=== PATIENT | male | born 1970 | race Caucasian/White ===

== ENCOUNTER 2019-09-12 14:03 | Observation (INO) ==
[2019-09-12] MEDS ORDERED: SODIUM CHLORIDE 0.9% 1000ML 1,000 ML IV SCH (14:30)
[2019-09-12] MEDS ORDERED: CLINDAMYCIN 900 MG in DEXTROSE 5% 50 ML IV ONE (15:02)
[2019-09-12] MEDS ORDERED: VANCOMYCIN HCL 1,750 MG in SODIUM CHLORIDE 0.9% 500 ML IV ONE (15:02)
[2019-09-12] MEDS ORDERED: PIPERACILL/TAZOBAC CONSULT ACTIVE PRN ×3 (15:02→19:47)
[2019-09-12] MEDS ORDERED: PIPERACILLIN/TAZOBACTAM 4.5 GM/120 ML BAG IV ONE (15:02)
[2019-09-12] MEDS ORDERED: VANCOMYCIN CONSULT ACTIVE PRN (15:02)
[2019-09-12 15:12] LABS: Appearance Urine Cloudy (Clear); Bacteria Urine Automated Negative (Negative); Blood Urine Negative (Negative); Color Urine Dark Yellow; Epithelial Cell Urine Auto 20-30 /lpf (0-5); Glucose Urine UA Negative (Negative); Ketones Urine Trace (Negative); Leukocyte Esterase Urine Trace (Negative); Nitrite Urine Negative (Negative); Protein Urine 1+ (Negative); Specific Gravity Urine 1.041 (1.000-1.030); Urobilinogen Urine Negative (Negative)
[2019-09-12 15:14] LABS: Basophils # (auto) 0.01 K/uL (0-0.2); Basophils % (auto) 0.1 %; Eosinophils # (auto) 0.05 K/uL (0-0.5); Eosinophils % (auto) 0.4 %; Hematocrit (blood only) 48.8 % (42-52); Hemoglobin 16.9 g/dL (14.0-18.0); Immature Granulocytes # (auto) 0.04 K/uL (0.00-0.02); Immature Granulocytes % (auto) 0.3 %; Lymphocytes # (auto) 0.88 K/uL (1.2-3.4); Lymphocytes % (auto) 7.5 %; Mean Corpuscular Hemoglobin 31.9 pg (25-34); Mean Corpuscular Hgb Conc 34.6 g/dL (32-36); Mean Corpuscular Volume 92.1 fL (80-100); Mean Platelet Volume 11.9 fL (7.4-10.4); Monocytes % (auto) 7.7 %; Neutrophils # (auto) 9.86 K/uL (1.4-6.5); Platelet Count 216 K/uL (130-400); RDW Coefficient of Variation 11.9 % (11.5-14.5); RDW Standard Deviation 40.6 fL (36.4-46.3); White Blood Count 11.74 K/uL (4.8-10.8)
[2019-09-12 15:16] LABS: Bilirubin Urine Negative (Negative); Ictotest Urine Negative (Negative)
--- NOTE | 2019-09-12 15:18 | Emergency Department Note ---
History of Present Illness General Chief complaint: Groin Pain Stated complaint: LUMP IN GROIN Time Seen by Provider: 09/12/19 14:09 History of Present Illness Maximum Pain Intensity: 7 This is a 49-year-old male that presents to the emergency department via private vehicle with complaints "lump in groin". The patient states this past Tuesday he was fishing, when he notes that he developed some discomfort in the rectal region. He thought perhaps it was a bruise from sitting while fishing but then notes that Tuesday evening into Tuesday the area increased in size and the pain also increased. He did take 3 days of penicillin that he had at home without relief. The area continues to grow. He denies any fevers or chills. He rates the pain is a 7/10. He has never had this before. He did have a recent shoulder surgery performed in June. Home Medications Home Medications Medication Instructions Recorded Confirmed Type famotidine 20 mg PO DAILY 11/21/18 09/12/19 History meloxicam 7.5 mg PO DAILY PRN 11/21/18 09/12/19 History rosuvastatin 20 mg PO DAILY 11/21/18 09/12/19 History Allergies Allergy/AdvReac Type Severity Reaction Status Date / Time Bactrim Allergy Severe ANAPHYLAXIS Verified 04/04/13 08:43 sulfamethoxazole Allergy Severe ANAPHYLAXIS Verified 09/12/19 14:26 trimethoprim Allergy Severe ANAPHYLAXIS Verified 09/12/19 14:26 adhesive Allergy Rash Unverified 09/12/19 14:26 Past Med/Surg History Medical History No pertinent past medical history Surgical History History of shoulder surgery Social History Preferred Language: Urdu Feels Safe at Home: Yes Smoking Status: Never smoker Review of Systems A total of 10 systems reviewed and were otherwise negative Physical Exam Vital Signs Vital Signs - 24 hr 09/12/19 14:04 09/12/19 15:00 09/12/19 15:02 Temperature 36.8 C Temperature Source Oral Pulse Rate 115 H 100 H Pulse Rate [Apical] Pulse Rate [Left] 100 H Pulse Rate from SpO2 Sensor 100 H Pulse Rhythm [Apical] Pulse Rhythm [Left] Regular Respiratory Rate 18 24 20 Respiratory Effort / Characteristics Non-Labored Spontaneous Non-Labored Respiratory Depth Normal Normal Respiratory Pattern Regular Blood Pressure 160/109 H 149/90 H Blood Pressure [Left Arm] 149/90 H Blood Pressure Mean 126 111 Blood Pressure Mean [Left Arm] 109 Blood Pressure Position Sitting Blood Pressure Position [Left Arm] Pulse Oximetry 98 99 96 Oxygen Delivery Method Room Air Room Air Oxygen Flow Rate Sepsis Recent Fever Within 48 Hours No Sepsis Action Taken by Nursing No Action Required 09/12/19 15:30 09/12/19 16:04 09/12/19 16:30 Temperature Temperature Source Pulse Rate 102 H 96 H 95 H Pulse Rate [Apical] Pulse Rate [Left] Pulse Rate from SpO2 Sensor 103 H 95 H 95 H Pulse Rhythm [Apical] Pulse Rhythm [Left] Respiratory Rate 21 25 H 24 Respiratory Effort / Characteristics Respiratory Depth Respiratory Pattern Blood Pressure 141/94 H Blood Pressure [Left Arm] Blood Pressure Mean 103 Blood Pressure Mean [Left Arm] Blood Pressure Position Blood Pressure Position [Left Arm] Pulse Oximetry 97 98 97 Oxygen Delivery Method Room Air Oxygen Flow Rate Sepsis Recent Fever Within 48 Hours Sepsis Action Taken by Nursing 09/12/19 17:06 09/12/19 18:44 09/12/19 18:50 Temperature 37.1 C Temperature Source Temporal Artery Scan Pulse Rate 100 H Pulse Rate [Apical] 90 93 H Pulse Rate [Left] Pulse Rate from SpO2 Sensor Pulse Rhythm [Apical] Regular Regular Pulse Rhythm [Left] Respiratory Rate 20 12 13 Respiratory Effort / Characteristics Non-Labored Spontaneous Non-Labored Spontaneous Respiratory Depth Normal Normal Respiratory Pattern Regular Regular Blood Pressure 162/97 H Blood Pressure [Left Arm] 146/94 H 111/91 Blood Pressure Mean Blood Pressure Mean [Left Arm] 111 97 Blood Pressure Position Blood Pressure Position [Left Arm] Lying Lying Pulse Oximetry 97 98 98 Oxygen Delivery Method Room Air Nasal Cannula Nasal Cannula Oxygen Flow Rate 4 4 Sepsis Recent Fever Within 48 Hours Sepsis Action Taken by Nursing 09/12/19 19:00 09/12/19 19:10 Temperature Temperature Source Pulse Rate Pulse Rate [Apical] 94 H 91 H Pulse Rate [Left] Pulse Rate from SpO2 Sensor Pulse Rhythm [Apical] Regular Regular Pulse Rhythm [Left] Respiratory Rate 16 15 Respiratory Effort / Characteristics Non-Labored Spontaneous Non-Labored Spontaneous Respiratory Depth Normal Normal Respiratory Pattern Regular Regular Blood Pressure Blood Pressure [Left Arm] 115/91 129/91 Blood Pressure Mean Blood Pressure Mean [Left Arm] 99 103 Blood Pressure Position Blood Pressure Position [Left Arm] Lying Lying Pulse Oximetry 98 98 Oxygen Delivery Method Nasal Cannula Nasal Cannula Oxygen Flow Rate 4 4 Sepsis Recent Fever Within 48 Hours Sepsis Action Taken by Nursing VITAL SIGNS - Vital signs and nursing notes were reviewed. Patient is mildly tachycardic on arrival, otherwise stable GENERAL -49-year-old male appearing his stated age who is in no acute distress. Communicates well with provider and answers questions appropriately. SKIN -please see the /rectal portion of the exam. There is an edematous, and erythematous region overlying the patient's right perirectal region. HEAD - NC/AT. EYES - Sclera anicteric. MOUTH/OROPHARYNX - Without perioral cyanosis. NECK - Neck with FROM. No nuchal rigidity. LUNGS - Chest wall symmetric without accessory muscle use, intercostals retractions, or central cyanosis. Normal vesicular breath sounds CTA B/L. No wheezes, rales, or rhonchi appreciated. CARDIAC - RRR with S1/S2. No murmur, rubs, or gallops appreciated. ABDOMEN - Abdominal contour normal without pulsations or visible masses. BS normoactive all four quadrants. No tenderness, palpable masses, hepatosplenomegaly, or ascites noted. /rectal: There is edema as well as erythema overlying the patient's right pararectal region that tracks to the perineal region. There is no scrotal tenderness. No scrotal edema. No scrotal erythema. Course Administered Medications Fentanyl Citrate (Fentanyl Citrate) 50 mcg IV Q5M PRN PRN Reason: PACU Use Only-Pain Stop: 09/13/19 03:02 Last Admin: 09/12/19 19:03 Dose: 50 mcg Documented by: [id number] Ioversol (Optiray 320 100ml) 94 ml IV ONCE PRN PRN Reason: Interaction Checking Stop: 09/16/19 15:51 Last Admin: 09/12/19 15:52 Dose: 94 ml Documented by: [id number] Discontinued Medications Bacitracin (Bacitracin) Confirm Administered Dose 45 appln .ROUTE .STK-MED ONE Stop: 09/12/19 18:03 Last Admin: 09/12/19 18:11 Dose: Not Given Documented by: [id number] Bupivacaine HCl (Marcaine 0.5% Mpf) Confirm Administered Dose 30 ml .ROUTE .STK- MED ONE Stop: 09/12/19 18:03 Last Admin: 09/12/19 18:11 Dose: 6 ml Documented by: [id number] Fentanyl Citrate (Fentanyl Citrate) Confirm Administered Dose 100 mcg .ROUTE .STK-MED ONE Stop: 09/12/19 18:59 Last Increment: 09/12/19 18:58 Dose: 50 mcg Documented by: [id number] Sodium Chloride (Nss 1000ml) 1,000 mls @ 999 mls/hr IV .Q1H1M BARBARA Stop: 09/12/19 15:30 Last Admin: 09/12/19 14:57 Dose: 999 mls/hr Documented by: [id number] Clindamycin Phosphate 900 mg/ (Dextrose) 56 mls @ 112 mls/hr IV ONE ONE Stop: 09/12/19 15:31 Last Admin: 09/12/19 16:22 Dose: 112 mls/hr Documented by: [id number] Vancomycin HCl 1,750 mg/ (Sodium Chloride) 535 mls @ 200 mls/hr IV NOW ONE Stop: 09/12/19 17:42 Last Admin: 09/12/19 15:41 Dose: 200 mls/hr Documented by: [id number] Piperacillin Sod/Tazobactam Sod (Zosyn) 4.5 gm in 120 mls @ 240 mls/hr IV NOW ONE Stop: 09/12/19 15:31 Last Infusion: 09/12/19 16:22 Dose: 0 mls/hr Documented by: [id number] Admin: 09/12/19 15:16 Dose: 240 mls/hr Documented by: [id number] Lidocaine HCl (Xylocaine 1% (Local)) Confirm Administered Dose 20 ml .ROUTE .STK-MED ONE Stop: 09/12/19 18:03 Last Admin: 09/12/19 18:12 Dose: 6 ml Documented by: [id number] Medical Decision Making Laboratory Data Result diagrams: 09/12/19 14:51 09/12/19 14:51 Lab Results 09/12/19 09/12/19 09/12/19 Range/Units 14:51 14:51 14:51 WBC 11.74 H (4.8-10.8) K/uL RBC 5.30 (4.7-6.1) M/uL Hgb 16.9 (14.0-18.0) g/dL Hct 48.8 (42-52) % MCV 92.1 (80-100) fL MCH 31.9 (25-34) pg MCHC 34.6 (32-36) g/dL RDW Std Deviation 40.6 (36.4-46.3) fL RDW Coeff of [place] 11.9 (11.5-14.5) % Plt Count 216 (130-400) K/uL MPV 11.9 H (7.4-10.4) fL Immature Gran % (Auto) 0.3 % Neut % (Auto) 84.0 % Lymph % (Auto) 7.5 % [place] % (Auto) 7.7 % Eos % (Auto) 0.4 % Baso % (Auto) 0.1 % Immature Gran # (Auto) 0.04 H (0.00-0.02) K/uL Neut # (Auto) 9.86 H (1.4-6.5) K/uL Lymph # (Auto) 0.88 L (1.2-3.4) K/uL [place] # (Auto) 0.90 H (0.11-0.59) K/uL Eos # (Auto) 0.05 (0-0.5) K/uL Baso # (Auto) 0.01 (0-0.2) K/uL Sodium 130 L (136-145) mmol/L Potassium 3.8 (3.5-5.1) mmol/L Chloride 103 (98-107) mmol/L Carbon Dioxide 27 (21-32) mmol/L Anion Gap 0 L (3-11) BUN 12 (7-18) mg/dl Creatinine 1.10 (0.6-1.4) mg/dl Est Cr Clr Drug Dosing 85.8 ml/min Est GFR ( Amer) 90.2 Est GFR (Non-Af Amer) 77.9 BUN/Creatinine Ratio 10.9 (10-20) Glucose 97 (70-99) mg/dl Lactate 1.4 (0.4-2.0) mmol/L Calcium 9.7 (8.5-10.1) mg/dl Total Bilirubin 0.7 (0.2-1) mg/dl AST 13 L (15-37) U/L ALT 31 (12-78) U/L Alkaline Phosphatase 107 (45-117) U/L C-Reactive Protein 13.20 H (0-0.29) mg/dl Total Protein 8.9 H (6.4-8.2) gm/dl Albumin 4.0 (3.4-5.0) gm/dl Globulin 4.9 H (2.5-4.0) gm/dl Albumin/Globulin Ratio 0.8 L (0.9-2) Urine Color Urine Appearance (Clear) Urine pH (4.5-7.5) Ur Specific [place] (1.000-1.030) Urine Protein (Negative) Urine Glucose (UA) (Negative) Urine Ketones (Negative) Urine Blood (Negative) Urine Nitrite (Negative) Urine Bilirubin (Negative) Urine Urobilinogen (Negative) Ur Leukocyte Esterase (Negative) Urine WBC (Auto) (0-5) /hpf Urine RBC (Auto) (0-4) /hpf U Hyaline Cast (Auto) (0-5) /lpf U Epithel Cells (Auto) (0-5) /lpf Urine Bacteria (Auto) (Negative) 09/12/19 Range/Units 14:59 WBC (4.8-10.8) K/uL RBC (4.7-6.1) M/uL Hgb (14.0-18.0) g/dL Hct (42-52) % MCV (80-100) fL MCH (25-34) pg MCHC (32-36) g/dL RDW Std Deviation (36.4-46.3) fL RDW Coeff of [place] (11.5-14.5) % Plt Count (130-400) K/uL MPV (7.4-10.4) fL Immature Gran % (Auto) % Neut % (Auto) % Lymph % (Auto) % [place] % (Auto) % Eos % (Auto) % Baso % (Auto) % Immature Gran # (Auto) (0.00-0.02) K/uL Neut # (Auto) (1.4-6.5) K/uL Lymph # (Auto) (1.2-3.4) K/uL [place] # (Auto) (0.11-0.59) K/uL Eos # (Auto) (0-0.5) K/uL Baso # (Auto) (0-0.2) K/uL Sodium (136-145) mmol/L Potassium (3.5-5.1) mmol/L Chloride (98-107) mmol/L Carbon Dioxide (21-32) mmol/L Anion Gap (3-11) BUN (7-18) mg/dl Creatinine (0.6-1.4) mg/dl Est Cr Clr Drug Dosing ml/min Est GFR ( Amer) Est GFR (Non-Af Amer) BUN/Creatinine Ratio (10-20) Glucose (70-99) mg/dl Lactate (0.4-2.0) mmol/L Calcium (8.5-10.1) mg/dl Total Bilirubin (0.2-1) mg/dl AST (15-37) U/L ALT (12-78) U/L Alkaline Phosphatase (45-117) U/L C-Reactive Protein (0-0.29) mg/dl Total Protein (6.4-8.2) gm/dl Albumin (3.4-5.0) gm/dl Globulin (2.5-4.0) gm/dl Albumin/Globulin Ratio (0.9-2) Urine Color Dark Yellow Urine Appearance Cloudy A (Clear) Urine pH 6.0 (4.5-7.5) Ur Specific [place] 1.041 H (1.000-1.030) Urine Protein 1+ H (Negative) Urine Glucose (UA) Negative (Negative) Urine Ketones Trace H (Negative) Urine Blood Negative (Negative) Urine Nitrite Negative (Negative) Urine Bilirubin Negative (Negative) Urine Urobilinogen Negative (Negative) Ur Leukocyte Esterase Trace H (Negative) Urine WBC (Auto) 1-5 (0-5) /hpf Urine RBC (Auto) 5-10 H (0-4) /hpf U Hyaline Cast (Auto) 5-10 H (0-5) /lpf U Epithel Cells (Auto) 20-30 H (0-5) /lpf Urine Bacteria (Auto) Negative (Negative) Imaging Data Radiologist's Impression: CT abd pelvis IV con only CT DOSE: 661.46 mGy.cm HISTORY: perirectal edema, erythema tracking to perineum TECHNIQUE: Multiaxial CT images of the abdomen and pelvis were performed following the use of intravenous contrast. A dose lowering technique was utilized adhering to the principles of ALARA. COMPARISON STUDY: 11/21/2018 FINDINGS: The lung bases are clear. Liver spleen and pancreas are uniform. The kidneys are negative for hydronephrosis or perinephric infiltrative change. Upper abdominal bowel pattern is nonobstructive. Findings of mild chronic sigmoid diverticulosis. No evidence for acute diverticulitis. Infiltrative change right perirectal subcutaneous fat. Complex 4 x 2 cm collection immediately deep to the skin surface. No additional abscess or collection is appreciated. IMPRESSION: 1. Right perirectal cellulitis with evidence for an associated 4 x 2 cm right perirectal abscess. 2. Chronic sigmoid diverticulosis. 3. Otherwise no acute process in the abdomen or pelvis. ACT 112: Negative or not required by law. The above report was generated using voice recognition software. It may contain grammatical, syntax or spelling errors. Electronically signed by: Jean Bazzi M.D. 09/12/2019 4:02 PM MDM Narrative Patient was seen and evaluated as above in room B5. Review was performed of nursing notes and vital signs. After obtaining a thorough history and physical examination the above work up was performed. He presents to us today with pain in the perirectal region and on examination there is concern for perirectal abscess that does track to the perineal region in regard to cellulitis on examination. Given his presentation it was felt that broad coverage with antibiotics would be reasonable. Vancomycin, Zosyn and clindamycin were started. He was ordered fluids. Lab work was also drawn. There is leukocytosis 11.74 without anemia. No evidence of kidney or liver failure. CRP 13.20. Urinalysis does not suggest infection. There is no bacteria in the urine. A CT scan reveals right peritoneal cellulitis with evidence of an associated 4 x 2 cm right peritoneal abscess. I did discuss the findings with the attending physician as well as the on-call surgical team. Dr. Kohli came to evaluate the patient. Please refer to further documentation regarding the patient stay. In the evaluation and treatment of this patient the following differential diagnoses were entertained: Perirectal abscess, perirectal cellulitis, hemorrhoid, Robert's gangrene, scrotal abscess, among others. Impression & Plan Abscess, perirectal, Perirectal cellulitis Discharge Plan Visit Data *Final* Discharge Date/Time: 09/12/19 17:06 Chief Complaint: Groin Pain Stated Complaint: LUMP IN GROIN ED Provider: Paola,Danyel T ED Midlevel Provider: Jamie Mera Discharge Problem: Abscess, perirectal, Perirectal cellulitis Patient Disposition: Admitted As Inpatient Condition: Good Discharge Instructions Interventions: ED Discharge Assessment Last Done: 09/12/19 17:06
[2019-09-12 15:34] LABS: BUN Creatinine Ratio 10.9 (10-20); Calcium 9.7 mg/dl (8.5-10.1); Creatinine Clr Calc Pharmacy 85.8 ml/min; Est GFR (African American) 90.2; Est GFR (Non-African American) 77.9; Potassium 3.8 mmol/L (3.5-5.1)
[2019-09-12 15:37] LABS: Albumin Globulin Ratio 0.8 (0.9-2); Bilirubin,Total 0.7 mg/dl (0.2-1); C Reactive Protein 13.2 mg/dl (0-0.29); Globulin 4.9 gm/dl (2.5-4.0); Total Protein 8.9 gm/dl (6.4-8.2)
[2019-09-12] MEDS ORDERED: IOVERSOL 100ml IV PRN (15:52)
--- NOTE | 2019-09-12 16:04 | CT Scan Report ---
CT abd pelvis IV con only CT DOSE: 661.46 mGy.cm HISTORY: perirectal edema, erythema tracking to perineum TECHNIQUE: Multiaxial CT images of the abdomen and pelvis were performed following the use of intrave nous contrast. A dose lowering technique was utilized adhering to the principles of ALARA. COMPARISON STUDY: 11/21/2018 FINDINGS: The lung bases are clear. Liver spleen and pancreas are uniform. The kidneys are negative f or hydronephrosis or perinephric infiltrative change. Upper abdominal bowel pattern is nonobstructive. Findings of mild chronic sigmoid diverticulosis. No evidence for acute diverticulitis. Infiltrative change right perirectal subcutaneous fat. Complex 4 x 2 cm collection immediately deep t o the skin surface. No additional abscess or collection is appreciated. IMPRESSION: 1. Right perirectal cellulitis with evidence for an associated 4 x 2 cm right perirectal abscess. 2. Chronic sigmoid diverticulosis. 3. Otherwise no acute process in the abdomen or pelvis. ACT 112: Negative or not required by law. The above report was generated using voice recognition software. It may contain grammatical, syntax or spelling errors. Electronically signed by: Jean Bazzi M.D. 09/12/2019 4:02 PM
--- NOTE | 2019-09-12 16:34 | Surgery Consultation ---
Date of Consultation September 12, 2019 Assessment & Plan (1) Abscess, perirectal: pt is a 49 year-old male who presents to ER with 2 days history right side perirectal pain, IMP: right side perirectal abscess with cellulitis Plan, I recommend to do I/D perirectal abscess, D/W benefits, risk and alternatives of the surgery, the risks- infection,m bleeding sepsis, recurrence, pt understood, he agrees with the surgery, i answered all questions, (2) Perirectal cellulitis: History of Present Illness History of Present Illness History of Present Illness General Chief complaint: Groin Pain Stated complaint: LUMP IN GROIN Time Seen by Provider: 09/12/19 14:09 History of Present Illness Maximum Pain Intensity: 7 This is a 49-year-old male that presents to the emergency department via private vehicle with complaints "lump in groin". The patient states this past Tuesday he was fishing, when he notes that he developed some discomfort in the rectal region. He thought perhaps it was a bruise from sitting while fishing but then notes that Tuesday evening into Tuesday the area increased in size and the pain also increased. He did take 3 days of penicillin that he had at home without relief. The area continues to grow. He denies any fevers or chills. He rates the pain is a 7/10. He has never had this before. He did have a recent shoulder surgery performed in June. I ( Reed Kohli MD ) reviewed pt's H/P , labs, CT scan with pt, Home Medications Home Medications Medication Instructions Recorded Confirmed Type famotidine 20 mg PO DAILY 11/21/18 09/12/19 History meloxicam 7.5 mg PO DAILY PRN 11/21/18 09/12/19 History rosuvastatin 20 mg PO DAILY 11/21/18 09/12/19 History Allergies Allergy/AdvReac Type Severity Reaction Status Date / Time Bactrim Allergy Severe ANAPHYLAXIS Verified 04/04/13 08:43 sulfamethoxazole Allergy Severe ANAPHYLAXIS Verified 09/12/19 14:26 trimethoprim Allergy Severe ANAPHYLAXIS Verified 09/12/19 14:26 adhesive Allergy Rash Unverified 09/12/19 14:26 Past Med/Surg History Medical History No pertinent past medical history Surgical History History of shoulder surgery Social History Preferred Language: Ecu[place]orean Feels Safe at Home: Yes Smoking Status: Never smoker Review of Systems A total of 10 systems reviewed and were otherwise negative Physical Exam Vital Signs Vital Signs - 24 hr 09/12/19 14:04 09/12/19 15:02 Temperature 36.8 C Temperature Source Oral Pulse Rate 115 H Pulse Rate [Left] 100 H Pulse Rhythm [Left] Regular Respiratory Rate 18 20 Respiratory Effort / Characteristics Non-Labored Spontaneous Non-Labored Respiratory Depth Normal Normal Respiratory Pattern Regular Blood Pressure 160/109 H Blood Pressure [Left Arm] 149/90 H Blood Pressure Mean 126 Blood Pressure Mean [Left Arm] 109 Blood Pressure Position Sitting Pulse Oximetry 98 96 Oxygen Delivery Method Room Air Room Air Sepsis Recent Fever Within 48 Hours No Sepsis Action Taken by Nursing No Action Required Allergies Allergy/AdvReac Type Severity Reaction Status Date / Time Bactrim Allergy Severe ANAPHYLAXIS Verified 04/04/13 08:43 sulfamethoxazole Allergy Severe ANAPHYLAXIS Verified 09/12/19 14:26 trimethoprim Allergy Severe ANAPHYLAXIS Verified 09/12/19 14:26 adhesive Allergy Rash Unverified 09/12/19 14:26 Home Medications Home Medications Medication Instructions Recorded Confirmed Type famotidine 20 mg PO DAILY 11/21/18 09/12/19 History meloxicam 7.5 mg PO DAILY PRN 11/21/18 09/12/19 History rosuvastatin 20 mg PO DAILY 11/21/18 09/12/19 History Patient History Medical History No pertinent past medical history Surgical History History of shoulder surgery Social History Preferred Language: Ecuadorean Feels Safe at Home: Yes Smoking Status: Never smoker Review of Systems Review of Systems: All systems reviewed & are unremarkable except as noted in HPI & below Constitutional: as per Subjective / HPI Eyes: as per Subjective / HPI Ear, Nose, Mouth, Throat: as per Subjective / HPI Respiratory: as per Subjective / HPI Cardiovascular: as per Subjective / HPI Gastrointestinal: as per Subjective / HPI Genitourinary: + as per Subjective / HPI Musculoskeletal: as per Subjective / HPI Integumentary: as per Subjective / HPI Neurologic: as per Subjective / HPI Psychiatric: as per Subjective / HPI Endocrine: as per Subjective / HPI Hematologic / Lymphatic: as per Subjective / HPI Allergy / Immunological: as per Subjective / HPI Physical Exam Constitutional: WD/WN, vitals as above well developed and well nourished Eyes: PERRL, conjunctivae normal, anicteric sclerae ENMT: external ear and nose normal, oropharynx normal Neck: trachea midline, no thyromegaly Respiratory: normal respiratory effort, lungs clear to auscultation Cardiovascular: RRR, no murmur, no edema Rate/Rhythm: regular rate and regular rhythm Heart Sounds: normal S1 and normal S2 Gastrointestinal (Abdomen): normal bowel sounds, soft, nontender, no hepatosplenomegaly osvaldo-rectal redness tenderness, size 8x10cm, Musculoskeletal: no cyanosis or clubbing, extremities motor strength 5/5 Skin: no rashes, warm and dry Neurologic: patellar DTR's 2+ bilat, sensation intact Psychiatric: Orientation: alert and oriented x 3 Results & Data Vital Signs (Past 12 Hours) Vital Signs Temp Pulse Pulse Resp BP BP Pulse Ox 09/12/19 15:02 100 H 20 149/90 H 96 09/12/19 14:04 36.8 C 115 H 18 160/109 H 98 Laboratory Results Abnormal lab results 09/12/19 09/12/19 09/12/19 Range/Units 14:51 14:51 14:59 WBC 11.74 H (4.8-10.8) K/uL MPV 11.9 H (7.4-10.4) fL Immature Gran # (Auto) 0.04 H (0.00-0.02) K/uL Neut # (Auto) 9.86 H (1.4-6.5) K/uL Lymph # (Auto) 0.88 L (1.2-3.4) K/uL [place] # (Auto) 0.90 H (0.11-0.59) K/uL Sodium 130 L (136-145) mmol/L Anion Gap 0 L (3-11) AST 13 L (15-37) U/L C-Reactive Protein 13.20 H (0-0.29) mg/dl Total Protein 8.9 H (6.4-8.2) gm/dl Globulin 4.9 H (2.5-4.0) gm/dl Albumin/Globulin Ratio 0.8 L (0.9-2) Urine Appearance Cloudy A (Clear) Ur Specific [employer] [place] 1.041 H (1.000-1.030) Urine Protein 1+ H (Negative) Urine Ketones Trace H (Negative) Ur Leukocyte Esterase Trace H (Negative) Urine RBC (Auto) 5-10 H (0-4) /hpf U Hyaline Cast (Auto) 5-10 H (0-5) /lpf U Epithel Cells (Auto) 20-30 H (0-5) /lpf Diagnostic Findings CT abd pelvis IV con only CT DOSE: 661.46 mGy.cm HISTORY: perirectal edema, erythema tracking to perineum TECHNIQUE: Multiaxial CT images of the abdomen and pelvis were performed following the use of intravenous contrast. A dose lowering technique was utilized adhering to the principles of ALARA. COMPARISON STUDY: 11/21/2018 FINDINGS: The lung bases are clear. Liver spleen and pancreas are uniform. The kidneys are negative for hydronephrosis or perinephric infiltrative change. Upper abdominal bowel pattern is nonobstructive. Findings of mild chronic sigmoid diverticulosis. No evidence for acute diverticulitis. Infiltrative change right perirectal subcutaneous fat. Complex 4 x 2 cm collection immediately deep to the skin surface. No additional abscess or collection is appreciated. IMPRESSION: 1. Right perirectal cellulitis with evidence for an associated 4 x 2 cm right perirectal abscess. 2. Chronic sigmoid diverticulosis. 3. Otherwise no acute process in the abdomen or pelvis.
[2019-09-12] MEDS ORDERED: PIPERACILLIN/TAZOBACTAM 3.375 GM in DEXTROSE 5% 100 ML/100 ML BAG IV STA (16:37)
--- NOTE | 2019-09-12 16:37 | History & Physical Bridge Note ---
Date of Service September 12, 2019 History & Physical Bridge Note I have examined the patient, reviewed the History & Physical and in the interval since the performance of the History & Physical I have noted the following changes of clinical significance: no changes noted
[2019-09-12] MEDS ORDERED: LIDOCAINE HCL 2% 2 ML VIAL/AMP(20MG/ML) INFIL ONE (16:47)
[2019-09-12] MEDS ORDERED: PROPOFOL IV EMULSION 10 MG/ML 20 ML VIAL IV ONE (16:47)
[2019-09-12] MEDS ORDERED: fentaNYL citrate 100 MCG/2 ML VIAL ONE ×4 (17:22→18:58)
[2019-09-12] MEDS ORDERED: ONDANSETRON INJ 2 MG/ML 2 ML VIAL ONE (17:22)
[2019-09-12] MEDS ORDERED: MIDAZOLAM HCL 1 MG/ML 2ML VIAL ONE (17:22)
[2019-09-12] MEDS ORDERED: LIDOCAINE HCL 1% 20 ML VIAL ONE (18:02)
[2019-09-12] MEDS ORDERED: BACITRACIN OINT 15 GM TUBE ONE (18:02)
[2019-09-12] MEDS ORDERED: BUPIVACAINE 0.5 % 5 MG/1 ML MPF 30ML VIAL ONE (18:02)
--- NOTE | 2019-09-12 18:16 | Post Operative Brief Note ---
Immediate Post Op Note v1 Date of Surgery September 12, 2019 Pre & Post Diagnosis Operation Date: 09/12/19 09:20 pre-op diagnosis: perirectal abscess post-op diagnosis: perirectal abscess I identified the patient and participated in the time-out.: Yes Procedure Operation Date: 09/12/19 09:20 incision and drainage perirectal abscess Surgeon Reed Kohli MD Hemotherapist technical services specialist Estimated Blood Loss 10 Findings Consistent with Post-Op Diagnosis large perirectal abscess size 5x8cm, 20 cc pus came out, wound culture sent Fluids 300ml Specimens wound culture Drains Other (packing the wound) Anesthesia Type General Complications none Disposition Accompanied Patient To Recovery: Yes Disposition: Recovery Room Overlapping Procedure I was immediately available: during the entire case.
[2019-09-12] MEDS ORDERED: ONDANSETRON INJ 2 MG/ML 2 ML VIAL IV PRN ×2 (18:19→19:02)
--- NOTE | 2019-09-12 19:01 | Anesthesiology Consultation ---
Date of Service September 12, 2019 Assessment & Plan Chart Review Chart Review: Acceptable Risk for Surgery Consults Requested none History Surgery Operation Date: 09/12/19 09:20 Proposed Procedures p Incision and Drainage Rectal Abscess - Reed Kohli MD Height/Weight Height: 5 ft 7 in Weight: 89.6 kg Allergies Allergy/AdvReac Type Severity Reaction Status Date / Time Bactrim Allergy Severe ANAPHYLAXIS Verified 04/04/13 08:43 sulfamethoxazole Allergy Severe ANAPHYLAXIS Verified 09/12/19 14:26 trimethoprim Allergy Severe ANAPHYLAXIS Verified 09/12/19 14:26 adhesive Allergy Rash Unverified 09/12/19 14:26 Medications Home Medications Medication Instructions Recorded Confirmed Last Taken famotidine 20 mg PO DAILY 11/21/18 09/12/19 11/21/18 meloxicam 7.5 mg PO DAILY PRN 11/21/18 09/12/19 Unknown rosuvastatin 20 mg PO DAILY 11/21/18 09/12/19 11/21/18 Active Medications Generic Name Dose Route Start Last Admin Trade Name Freq PRN Reason Stop Dose Admin Ioversol 94 ml 09/12/19 15:52 09/12/19 15:52 Optiray 320 100ml IV 09/16/19 15:51 94 ml ONCE PRN Administration Interaction Checking NPO Date Last Intake of Fluids: 09/12/19 Time Last Intake of Fluids: 15:00 Date Last Intake of Solids: 09/12/19 Time Last Intake of Solids: 08:00 Past Medical History Medical History No pertinent past medical history Past Surgical History Surgical History History of shoulder surgery Social History Smoking Status: Never smoker Physical Exam Vital Signs Last Vital Signs Temp 37.1 C 09/12/19 18:44 Pulse 90 09/12/19 18:44 Resp 12 09/12/19 18:44 BP 146/94 H 09/12/19 18:44 Pulse Ox 98 09/12/19 18:44 Testing Laboratory Results 09/12/19 14:51 09/12/19 14:51 Urine Color Dark Yellow 09/12/19 14:59 Urine Appearance Cloudy (Clear) A 09/12/19 14:59 Urine pH 6.0 (4.5-7.5) 09/12/19 14:59 Ur Specific [place] 1.041 (1.000-1.030) H 09/12/19 14:59 Urine Protein 1+ (Negative) H 09/12/19 14:59 Urine Glucose (UA) Negative (Negative) 09/12/19 14:59 Urine Ketones Trace (Negative) H 09/12/19 14:59 Urine Nitrite Negative (Negative) 09/12/19 14:59 Ur Leukocyte Esterase Trace (Negative) H 09/12/19 14:59 Urine WBC (Auto) 1-5 /hpf (0-5) 09/12/19 14:59 Urine RBC (Auto) 5-10 /hpf (0-4) H 09/12/19 14:59 U Hyaline Cast (Auto) 5-10 /lpf (0-5) H 09/12/19 14:59 U Epithel Cells (Auto) 20-30 /lpf (0-5) H 09/12/19 14:59 Urine Bacteria (Auto) Negative (Negative) 09/12/19 14:59
[2019-09-12] MEDS ORDERED: ePHEDrine sulfate 50 MG/ML AMP IV PRN (19:02)
[2019-09-12] MEDS ORDERED: HYDROmorphone INJ 2 MG/ML SYR/VIAL IV PRN (19:02)
[2019-09-12] MEDS ORDERED: DEXAMETHASONE SOD INJ 4 MG/ML VIAL IV PRN (19:02)
[2019-09-12] MEDS ORDERED: ATROPINE SULFATE 0.1 MG/ML 10ML SYR IV PRN (19:02)
[2019-09-12] MEDS ORDERED: fentaNYL citrate 100 MCG/2 ML VIAL IV PRN (19:02)
[2019-09-12] MEDS ORDERED: PROMETHAZINE HCL 12.5 MG in SODIUM CHLORIDE 0.9% 50 ML IV PRN (19:02)
[2019-09-12] MEDS ORDERED: METOCLOPRAMIDE HCL INJ 5 MG/ML 2 ML VIAL IV PRN (19:02)
--- NOTE | 2019-09-12 19:14 | Anesthesiology Progress Note ---
Date of Service September 12, 2019 Anesthesia Post Procedure Vital Signs Vital Signs: Temp Pulse Pulse Pulse Resp BP BP 09/12/19 19:10 91 H 15 129/91 09/12/19 19:00 94 H 16 115/91 09/12/19 18:50 93 H 13 111/91 09/12/19 18:44 37.1 C 90 12 146/94 H 09/12/19 17:06 100 H 20 162/97 H 09/12/19 16:30 95 H 24 09/12/19 16:04 96 H 25 H 09/12/19 15:30 102 H 21 141/94 H 09/12/19 15:02 100 H 20 149/90 H 09/12/19 15:00 100 H 24 149/90 H 09/12/19 14:04 36.8 C 115 H 18 160/109 H Pulse Ox 09/12/19 19:10 98 09/12/19 19:00 98 09/12/19 18:50 98 09/12/19 18:44 98 09/12/19 17:06 97 09/12/19 16:30 97 09/12/19 16:04 98 09/12/19 15:30 97 09/12/19 15:02 96 09/12/19 15:00 99 09/12/19 14:04 98 Pain Intensity Right Groin: Pain Intensity: 5 Rectal: Pain Intensity: 0 Transfer of Care Handoff Completed per policy Notes Mental Status: alert / awake / arousable and participated in evaluation Patient Amnestic to Procedure: Yes Nausea / Vomiting: adequately controlled Pain: adequately controlled Airway Patency, RR, SpO2: stable & adequate BP & HR: stable & adequate Hydration State: stable & adequate Anesthetic Complications: no major complications apparent
[2019-09-12] MEDS ORDERED: MELOXICAM 7.5 MG TAB PO PRN (19:47)
[2019-09-12] MEDS: LACTATED RINGER'S 1,000 ML IV SCH (19:54)
[2019-09-12] MEDS: PIPERACILLIN/TAZOBACTAM 3.375 GM in DEXTROSE 5% 100 ML IV SCH (20:59)
[2019-09-12] MEDS: OXYCODONE/ACETAMINOPHEN 5mg/325mg TAB PO PRN (21:09)
--- NOTE | 2019-09-12 21:13 | Operative Report (OR) ---
DATE OF OPERATION: 09/12/2019 PREOPERATIVE DIAGNOSIS: Perirectal abscess. POSTOPERATIVE DIAGNOSIS: Perirectal abscess. OPERATIVE PROCEDURE: I and D of perirectal abscess and packing of the wound. COMPLICATIONS: None. SURGEON: Reed Kohli MD. ANESTHESIA: General. ESTIMATED BLOOD LOSS: About 10 mL. FINDINGS: Large perirectal abscess size of about 5 x 8 cm with 20 mL of pus coming out. Wound culture sent. COMPLICATIONS: None. INDICATIONS FOR THE PROCEDURE: This is a 49-year-old gentleman who presented for rectal pain. The patient had a CT scan with a diagnosis of perirectal abscess. The patient is required to do the I and D of perirectal abscess. I did talk to the patient about the benefit, risk, alternate procedure. I indicated the risks may include but not limited to such as bleeding, infection, recurrence, sepsis. The patient understands. He signed informed consent and I answered all questions. DETAILS OF PROCEDURE: We brought the patient to the OR, put the patient in the supine position. The patient received SCD on bilateral legs to prevent DVT. Also, patient received 3.375 g of Zosyn IV for prophylactic antibiotic and patient received general anesthesia without difficulty. Then, we put the patient on the lithotomy position. The patient's rectal area was prepped and draped in a routine sterile fashion. Then we reexamined the patient. The patient had a right-sided perirectal abscess, redness, size of about 8 x 10 cm. So we injected local anesthesia by using 1% lidocaine mixed with 0.5% Marcaine around the abscess. Then we made about a 3 cm incision, immediately there was some 20 mL of pus coming out. Once we cleaned up the abscess deep to the muscle layer, hemostasis was obtained with packing of the wound with half-inch Kerlix. Again, hemostasis was obtained, then we put a pressure dressing. The patient tolerated the procedure well. All instrument, needle and sponge count were correct x2 at the end of the case. Wound culture was sent to lab. The patient was transferred to recovery room in stable condition. I attest to the content of the Intraoperative Record and any orders documented therein. Any exception s are noted below.
[2019-09-12 22:55] VITALS: TEMP 97.9
[2019-09-12] MEDS: HYDROmorphone INJ 1 MG/ML SYRINGE IV PRN (23:17)
[2019-09-13] MEDS: LACTATED RINGER'S 1,000 ML IV SCH (01:36)
[2019-09-13] MEDS: HYDROmorphone INJ 1 MG/ML SYRINGE IV PRN (03:28)
[2019-09-13] MEDS: OXYCODONE/ACETAMINOPHEN 5mg/325mg TAB PO PRN ×2 (05:35→09:56)
[2019-09-13] MEDS: PIPERACILLIN/TAZOBACTAM 3.375 GM in DEXTROSE 5% 100 ML IV SCH (05:57)
[2019-09-13 06:11] LABS: Basophils # (auto) 0.02 K/uL (0-0.2); Basophils % (auto) 0.2 %; Eosinophils # (auto) 0.31 K/uL (0-0.5); Eosinophils % (auto) 3.4 %; Hematocrit (blood only) 40.4 % (42-52); Hemoglobin 13.8 g/dL (14.0-18.0); Immature Granulocytes # (auto) 0.02 K/uL (0.00-0.02); Immature Granulocytes % (auto) 0.2 %; Lymphocytes # (auto) 1.41 K/uL (1.2-3.4); Lymphocytes % (auto) 15.5 %; Mean Corpuscular Hemoglobin 31.4 pg (25-34); Mean Corpuscular Hgb Conc 34.2 g/dL (32-36); Mean Platelet Volume 11.3 fL (7.4-10.4); Monocytes # (auto) 1.26 K/uL (0.11-0.59); Monocytes % (auto) 13.9 %; Neutrophils # (auto) 6.07 K/uL (1.4-6.5); Neutrophils % (auto) 66.8 %; Platelet Count 202 K/uL (130-400); RDW Standard Deviation 40.8 fL (36.4-46.3); Red Blood Count 4.39 M/uL (4.7-6.1); White Blood Count 9.09 K/uL (4.8-10.8)
[2019-09-13 06:33] LABS: Creatinine Clr Calc Pharmacy 104.9 ml/min; Est GFR (Non-African American) 99.2
[2019-09-13 07:14] VITALS: O2SAT 98
--- NOTE | 2019-09-13 08:30 | Anesthesiology Progress Note ---
Date of Service September 13, 2019 Anesthesia Post Procedure Vital Signs Vital Signs: Temp Pulse Pulse Pulse Pulse Resp BP 09/13/19 07:12 36.6 C 66 16 09/13/19 03:15 36.6 C 66 16 09/12/19 22:54 36.6 C 89 16 09/12/19 21:45 36.9 C 93 H 16 09/12/19 20:45 36.7 C 88 18 09/12/19 20:15 36.4 C L 89 16 09/12/19 19:45 36.6 C 94 H 18 09/12/19 19:30 37.1 C 87 17 09/12/19 19:20 37.6 C H 92 H 17 09/12/19 19:10 91 H 15 09/12/19 19:00 94 H 16 09/12/19 18:50 93 H 13 09/12/19 18:44 37.1 C 90 12 09/12/19 17:06 100 H 20 162/97 H 09/12/19 16:30 95 H 24 09/12/19 16:04 96 H 25 H 09/12/19 15:30 102 H 21 141/94 H 09/12/19 15:02 100 H 20 09/12/19 15:00 100 H 24 149/90 H 09/12/19 14:04 36.8 C 115 H 18 160/109 H BP BP Pulse Ox 09/13/19 07:12 117/76 98 09/13/19 03:15 103/70 96 09/12/19 22:54 111/69 96 09/12/19 21:45 127/72 96 09/12/19 20:45 122/78 96 09/12/19 20:15 122/81 96 09/12/19 19:45 117/83 97 09/12/19 19:30 123/75 95 09/12/19 19:20 121/90 94 09/12/19 19:10 129/91 98 09/12/19 19:00 115/91 98 09/12/19 18:50 111/91 98 09/12/19 18:44 146/94 H 98 09/12/19 17:06 97 09/12/19 16:30 97 09/12/19 16:04 98 09/12/19 15:30 97 04/15/20 15:02 149/90 H 96 09/12/19 15:00 99 09/12/19 14:04 98 Pain Intensity Right Groin: Pain Intensity: 5 Rectal: Pain Intensity: 3 Notes Mental Status: alert / awake / arousable and participated in evaluation Nausea / Vomiting: adequately controlled Pain: adequately controlled Airway Patency, RR, SpO2: stable & adequate BP & HR: stable & adequate Hydration State: stable & adequate Anesthetic Complications: no major complications apparent
[2019-09-13] MEDS ORDERED: FAMOTIDINE 20 MG TAB PO SCH ×2 (09:00→21:00)
[2019-09-13] MEDS ORDERED: ROSUVASTATIN CALCIUM 20 MG TAB PO SCH ×2 (09:00→21:00)
[2019-09-13] MEDS ORDERED: DOCUSATE SODIUM 100 MG CAP PO SCH (09:30)
[2019-09-13] MEDS ORDERED: Nursing to Pharmacy Communication ONE (10:08)
[2019-09-13 11:33] VITALS: BP 111/69; PULSE 87
--- NOTE | 2019-09-13 11:54 | Surgery Progress Note ---
Date of Service September 13, 2019 Assessment & Plan (1) Abscess, perirectal: POD # 1 s/p I&D Right perirectal abscess -avss - leukocytosis resolved - moderate pain controlled - no n/v, passing flatus Plan: Okay for discharge today Oral Percocet prn pain and 7 day course of PO Cipro and Flagyl sent to pharmacy f/u wound clinic tomorrow at 10:10 am for packing change Discharge instructions reviewed surgical follow-up will be scheduled by our office, likely telephonic follow-up Dr. Kohli has seen and examined pt, agrees with above. (2) Perirectal cellulitis: Subjective feeling better than yesterday pain about 4/10 currently, pain controlled throughout night no n/v, tolerated regular diet no fevers or chills passing flatus Physical Exam Constitutional: WD/WN, vitals as above no acute distress Respiratory: normal respiratory effort; no respiratory distress Gastrointestinal (Abdomen): Rectal: external exam with dry outer dressing, soaked 4x4 gauze, packing in place. no significant induration or cellulitis visible Skin: no rashes, warm and dry Psychiatric: A+Ox3, euthymic affect Results & Data Vital Signs (Past 12 Hours) Vital Signs Temp Pulse Pulse Resp BP BP Pulse Ox 09/13/19 11:32 36.6 C 87 66 16 111/69 117/76 98 09/13/19 07:12 36.6 C 66 16 117/76 98 09/13/19 03:15 36.6 C 66 16 103/70 96 Laboratory Results Microbiology 09/12/19 Unknown Gram Stain - Final Rectal Abscess Aerobic and Anaerobic Culture - Preliminary Gram negative bacilli 09/13/19 09/13/19 09/12/19 Range/Units 05:43 05:43 14:59 WBC 9.09 (4.8-10.8) K/uL RBC 4.39 L (4.7-6.1) M/uL Hgb 13.8 L D (14.0-18.0) g/dL Hct 40.4 L (42-52) % MCV 92.0 (80-100) fL MCH 31.4 (25-34) pg MCHC 34.2 (32-36) g/dL RDW Std Deviation 40.8 (36.4-46.3) fL RDW Coeff of [place]othe[place] 12.0 (11.5-14.5) % Plt Count 202 (130-400) K/uL MPV 11.3 H (7.4-10.4) fL Immature Gran % (Auto) 0.2 % Neut % (Auto) 66.8 % Lymph % (Auto) 15.5 % [place] % (Auto) 13.9 % Eos % (Auto) 3.4 % Baso % (Auto) 0.2 % Immature Gran # (Auto) 0.02 (0.00-0.02) K/uL Neut # (Auto) 6.07 (1.4-6.5) K/uL Lymph # (Auto) 1.41 (1.2-3.4) K/uL [place] # (Auto) 1.26 H (0.11-0.59) K/uL Eos # (Auto) 0.31 (0-0.5) K/uL Baso # (Auto) 0.02 (0-0.2) K/uL Sodium (136-145) mmol/L Potassium (3.5-5.1) mmol/L Chloride (98-107) mmol/L Carbon Dioxide (21-32) mmol/L Anion Gap (3-11) BUN (7-18) mg/dl Creatinine 0.90 (0.6-1.4) mg/dl Est Cr Clr Drug Dosing 104.9 ml/min Est GFR ( Amer) 115.0 Est GFR (Non-Af Amer) 99.2 BUN/Creatinine Ratio (10-20) Glucose (70-99) mg/dl Lactate (0.4-2.0) mmol/L Calcium (8.5-10.1) mg/dl Total Bilirubin (0.2-1) mg/dl AST (15-37) U/L ALT (12-78) U/L Alkaline Phosphatase (45-117) U/L C-Reactive Protein (0-0.29) mg/dl Total Protein (6.4-8.2) gm/dl Albumin (3.4-5.0) gm/dl Globulin (2.5-4.0) gm/dl Albumin/Globulin Ratio (0.9-2) Urine Color Dark Yellow Urine Appearance Cloudy A (Clear) Urine pH 6.0 (4.5-7.5) Ur Specific [place] 1.041 H (1.000-1.030) Urine Protein 1+ H (Negative) Urine Glucose (UA) Negative (Negative) Urine Ketones Trace H (Negative) Urine Blood Negative (Negative) Urine Nitrite Negative (Negative) Urine Bilirubin Negative (Negative) Urine Urobilinogen Negative (Negative) Ur Leukocyte Esterase Trace H (Negative) Urine WBC (Auto) 1-5 (0-5) /hpf Urine RBC (Auto) 5-10 H (0-4) /hpf U Hyaline Cast (Auto) 5-10 H (0-5) /lpf U Epithel Cells (Auto) 20-30 H (0-5) /lpf Urine Bacteria (Auto) Negative (Negative) 09/12/19 09/12/19 09/12/19 Range/Units 14:51 14:51 14:51 WBC 11.74 H (4.8-10.8) K/uL RBC 5.30 (4.7-6.1) M/uL Hgb 16.9 (14.0-18.0) g/dL Hct 48.8 (42-52) % MCV 92.1 (80-100) fL MCH 31.9 (25-34) pg MCHC 34.6 (32-36) g/dL RDW Std Deviation 40.6 (36.4-46.3) fL RDW Coeff of [place] 11.9 (11.5-14.5) % Plt Count 216 (130-400) K/uL MPV 11.9 H (7.4-10.4) fL Immature Gran % (Auto) 0.3 % Neut % (Auto) 84.0 % Lymph % (Auto) 7.5 % [place] % (Auto) 7.7 % Eos % (Auto) 0.4 % Baso % (Auto) 0.1 % Immature Gran # (Auto) 0.04 H (0.00-0.02) K/uL Neut # (Auto) 9.86 H (1.4-6.5) K/uL Lymph # (Auto) 0.88 L (1.2-3.4) K/uL [place] # (Auto) 0.90 H (0.11-0.59) K/uL Eos # (Auto) 0.05 (0-0.5) K/uL Baso # (Auto) 0.01 (0-0.2) K/uL Sodium 130 L (136-145) mmol/L Potassium 3.8 (3.5-5.1) mmol/L Chloride 103 (98-107) mmol/L Carbon Dioxide 27 (21-32) mmol/L Anion Gap 0 L (3-11) BUN 12 (7-18) mg/dl Creatinine 1.10 (0.6-1.4) mg/dl Est Cr Clr Drug Dosing 85.8 ml/min Est GFR ( Amer) 90.2 Est GFR (Non-Af Amer) 77.9 BUN/Creatinine Ratio 10.9 (10-20) Glucose 97 (70-99) mg/dl Lactate 1.4 (0.4-2.0) mmol/L Calcium 9.7 (8.5-10.1) mg/dl Total Bilirubin 0.7 (0.2-1) mg/dl AST 13 L (15-37) U/L ALT 31 (12-78) U/L Alkaline Phosphatase 107 (45-117) U/L C-Reactive Protein 13.20 H (0-0.29) mg/dl Total Protein 8.9 H (6.4-8.2) gm/dl Albumin 4.0 (3.4-5.0) gm/dl Globulin 4.9 H (2.5-4.0) gm/dl Albumin/Globulin Ratio 0.8 L (0.9-2) Urine Color Urine Appearance (Clear) Urine pH (4.5-7.5) Ur Specific [place] (1.000-1.030) Urine Protein (Negative) Urine Glucose (UA) (Negative) Urine Ketones (Negative) Urine Blood (Negative) Urine Nitrite (Negative) Urine Bilirubin (Negative) Urine Urobilinogen (Negative) Ur Leukocyte Esterase (Negative) Urine WBC (Auto) (0-5) /hpf Urine RBC (Auto) (0-4) /hpf U Hyaline Cast (Auto) (0-5) /lpf U Epithel Cells (Auto) (0-5) /lpf Urine Bacteria (Auto) (Negative)
--- NOTE | 2019-09-14 11:46 | Discharge Summary ---
Date of Service September 14, 2019 Admission HPI Per Admitting Provider This is a 49-year-old male that presents to the emergency department via private vehicle with complaints "lump in groin". The patient states this past Tuesday he was fishing, when he notes that he developed some discomfort in the rectal region. He thought perhaps it was a bruise from sitting while fishing but then notes that Tuesday evening into Tuesday the area increased in size and the pain also increased. He did take 3 days of penicillin that he had at home without relief. The area continues to grow. He denies any fevers or chills. He rates the pain is a 7/10. He has never had this before. He did have a recent shoulder surgery performed in June. I ( Reed Kohli MD ) reviewed pt's H/P , labs, CT scan with pt, Principal Diagnosis Right perirectal abscess with cellulitis Discharge Data Allergies Allergy/AdvReac Type Severity Reaction Status Date / Time Bactrim Allergy Severe ANAPHYLAXIS Verified 04/04/13 08:43 sulfamethoxazole Allergy Severe ANAPHYLAXIS Verified 09/14/19 10:29 trimethoprim Allergy Severe ANAPHYLAXIS Verified 09/14/19 10:29 adhesive Allergy Rash Unverified 09/14/19 10:29 Consultations 09/12/19 16:57 ED Decision to Admit Stat Procedures Performed Operation Date: 09/12/19 09:20 Actual Procedures p Incision and Drainage Rectal Abscess(Not Applicable) - Reed Kohli MD Ordered Studies 09/12/19 14:20 CT abd pelvis IV con only Stat Hospital Course (1) Abscess, perirectal: Patient taken to operating room for I&D of right perirectal abscess by Dr. Kohli. Patient found to have large and deep abscess. Culture was obtained. Wound was irrigated and packed. Patient tolerated procedure well and was transferred to recovery and then to medical/surgical floor. Diet was advanced to regular, IV fluids, IV Zosyn, PO Percocet as needed for pain. POD # 1 avss, pain controlled throughout night, no n/v, tolerated diet, passing flatus. Patient discharged home on POD # 1 in stable condition. Outpatient f/u with wound care center for packing changes and wound care. PO Cipro/flagyl for 7 days on discharge. (2) Perirectal cellulitis: Total Time Total Time Spent Total Time Spent (In Minutes): 30 Total Time Includes: Examination of the Patient, Discharge Planning and Medication Reconciliation Discharge Plan Discharge Items Patient Disposition: Home - Self-Care Reason For Visit: PERIRECTAL ABSCESS Discharge Diagnosis: Right perirectal abscess Condition on Discharge: Good Activity: As commented below Non-emergency contact: Surgeon Call non-emergency contact if: you have any medication questions, your pain is not controlled, your pain is worsening, your pain is concerning for you, you have a fever, your temperature is above 101, your wound has increased redness and your wound pain has increased Follow-up/Referrals: Edi Cr, [Primary Care Provider] - Diet: Regular Addtl Attending Provider Instructions: ACTIVITY RECOMMENDATIONS: * No heavy lifting for 1 week. * Walking is encouraged daily MEDICATIONS: Resume previous medications unless instructed otherwise by your surgeon. * Percocet 5/325 mg 1 every 4 hours, as needed for pain * Colace 100 mg 2 times per day. (can be purchased [id number]) * Extra Strength Tylenol 500 - 1000 mg every 4 hours, as needed for pain * Ibuprofen 600 mg every 6 hours, as needed for pain * Oral antibiotics will be prescribed for 7 days, take entire course as directed. SPECIAL CARE INSTRUCTIONS: * Remove outer dressings and change as needed to keep clean and dry. Change after having bowel movement. * You may shower starting tomorrow after packing change at wound care center or as per their recommendations. * Call the surgeon's office with any questions or concerns - (ex. temperature higher than 101 degrees F, excessive bleeding or pain). FOLLOW UP VISIT: You are scheduled at wound care clinic tomorrow 09/14/2019 at 10:10 am for packing change. Recommend follow-up with wound care clinic. Surgical follow-up will be telephone call in 2 weeks as we are limiting in- person visits due to current COVID pandemic. The office will call you to get that scheduled. If you have any questions about your immediate post-op care or concerns, please call office at [phone]. If you feel you need to be evaluated by the surgeon we can get you scheduled to be seen. . Pending Studies at Discharge: Yes (culture results) Stand-Alone Forms: My [facility], Opioid Pain Management Medications and DC Order Prescriptions: New oxycodone-acetaminophen [Percocet] 5-325 mg Tablet 1 tab PO Q4H PRN (Reason: pain) Qty: 18 RF: 0 ciprofloxacin HCl [Cipro] 500 mg tablet 500 mg PO BID Qty: 14 RF: 0 metronidazole [Flagyl] 500 mg tablet 500 mg PO TID Qty: 21 RF: 0 Continued meloxicam 7.5 mg tablet 7.5 mg PO DAILY PRN (Reason: Pain) RF: 0 famotidine 20 mg tablet 20 mg PO DAILY RF: 0 rosuvastatin 20 mg tablet 20 mg PO DAILY RF: 0 Discharge Orders: Discharge Order (Routine); Ordered 09/13/19 Ordered By: Jazlyn Underwood/Other Patient Handouts: DVT Post Op Prevention Admission Data Admit Date/Time: 09/12/19 18:19 Attending Provider: Reed Kohli Admit Provider: Reed Kohli Primary Care Provider: Edi Cr Other Providers: Reed Kohli Other Interventions: Discharge Summary Assessment (RN) Last Done: 09/13/19 11:32 DC Date/Time DO NOT enter until pt leaves facility: 09/13/19 13:18
== END 2019-09-13 13:18 | disposition home or self-care (01) ==
LOC: ED 14:03 → 3E 17:06 → OR 17:06
DX: K57.30 Diverticulosis of large intestine without perforation or abscess without bleeding; I10 Essential (primary) hypertension; Z88.2 Allergy status to sulfonamides; K61.1 Rectal abscess; Z79.899 Other long term (current) drug therapy; Z88.8 Allergy status to other drugs, medicaments and biological substances; K21.9 Gastro-esophageal reflux disease without esophagitis